=== PATIENT | male | born 1970 | race Caucasian/White ===

== ENCOUNTER 2020-08-13 07:05 | Day surgery (SDC) | payer OTHER ==
[2020-07-29 11:00] LABS: EOSINOPHILS # (AUTO) 0.1 X10'3 (0-0.9)
[2020-07-29 11:02] LABS: BASOPHILS % (AUTO) 0.7 % (0-1); EOSINOPHILS % (AUTO) 1.6 % (0-6); LYMPHOCYTES # (AUTO) 1.1 X10'3 (1.1-4.8); MEAN CORPUSCULAR HEMOGLOBIN 30.5 PG (27.0-31.0); MEAN CORPUSCULAR HGB CONC 34.1 g/dL (33.0-36.5); MEAN CORPUSCULAR VOLUME 89.4 FL (78-98); MEAN PLATELET VOLUME 6.5 FL (7.4-10.4); MONOCYTES # (AUTO) 0.4 X10'3 (0-0.9); MONOCYTES % (AUTO) 6.4 % (2-12); NEUTROPHILS # (AUTO) 5.3 X10'3 (1.8-7.7); NEUTROPHILS % (AUTO) 75.3 % (42-75); PRE OP HEMATOCRIT 46.2 % (42.0-52.0); PRE OP HEMOGLOBIN 15.7 g/dL (14.0-17.9); PRE OP PLATELET COUNT 310 X10'3 (140-440); RED BLOOD COUNT 5.16 X10'6 (4.70-6.10); RED CELL DISTRIBUTION WIDTH 13.4 % (11.5-14.5)
[2020-07-29 11:12] LABS: ALBUMIN 3.7 G/DL (3.4-5.0); ALBUMIN/GLOBULIN RATIO 0.9 (1.1-1.5); ALKALINE PHOSPHATASE 94 IU/L (46-116); BLOOD UREA NITROGEN 12 MG/DL (7-18); BUN/CREATININE RATIO 13.2 (5.4-32.0); CALCIUM 9.3 MG/DL (8.5-10.1); CHLORIDE 100 MMOL/L (99-107); CREATININE 0.91 MG/DL (0.60-1.10); PRE OP ALT 49 U/L (30-65); PRE OP ANION GAP 10 (8-16); PRE OP AST 32 U/L (10-37); PRE OP BILIRUB, TOTAL 0.6 MG/DL (0.0-1.0); PRE OP GLUCOSE 117 MG/DL (70-104); PRE OP POTASSIUM 4.3 MMOL/L (3.4-5.1); PRE OP SODIUM 138 MMOL/L (135-145); TOTAL CARBON DIOXIDE 27.8 MMOL/L (24-32); eGFR 88 ML/MIN
[~2020-08-13] VITALS: Ht 195.6 cm; Wt 131.5 kg
[2020-08-13] VITALS (9 sets, daily range): BP systolic 114–152; BP diastolic 55–92
[~2020-08-13 07:05] MED LIST: ICOS1CAP PO; LISI1TAB32 PO; ROSU40TA PO; ceFAZolin inj. 3,000 MG in normal saline 100ml IV soln 100 ML IV ONE; famotidine 20mg tablet PO ONE; ringers solution, lacted 1,000 ML IV SCH
[2020-08-13] MEDS ORDERED: LIDOcaine 1% 30ml preserv. free vial ONE (09:29)
[2020-08-13] MEDS ORDERED: BUPIVAcaine/PF 2.5 mg/ml (0.25%) 30ml vial ONE (09:29)
[2020-08-13] MEDS ORDERED: dexamethasone sod phosphate 10mg/ml inj ONE (09:35)
[2020-08-13] MEDS ORDERED: sevoflurane 250ml liquid IH ONE (09:35)
[2020-08-13] MEDS ORDERED: fentaNYL/PF 50MCG/1 ML 2ML syringe ONE (09:42)
[2020-08-13] MEDS ORDERED: midazolam 2 mg/2 ml injection ONE (09:43)
[2020-08-13] MEDS ORDERED: propofol inj 20 ML IV ONE (09:54)
[2020-08-13] MEDS ORDERED: rocuronium 10mg/ml inj IV ONE (09:54)
[2020-08-13] MEDS ORDERED: LIDOcaine 2% (20mg/ml) 5ml vial ONE (09:54)
[2020-08-13] MEDS ORDERED: glycopyrrolate 0.2mg/ml inj ONE (09:54)
[2020-08-13] MEDS ORDERED: ondansetron/PF 4mg/2ml inj ONE (09:55)
[2020-08-13] MEDS ORDERED: neostigmine methylsulfate 1 MG/ML 10ml vial ONE (09:58)
[2020-08-13] MEDS ORDERED: labetalol 20mg/4ml (5mg/ml) syringe IV ONE (10:15)
[2020-08-13] MEDS ORDERED: ondansetron/PF 4mg/2ml inj IV PRN (10:25)
[2020-08-13] MEDS ORDERED: hydrALAZINE 20mg/ml inj. IV PRN (10:25)
[2020-08-13] MEDS ORDERED: fentaNYL/PF 50MCG/1 ML 2ML syringe IV PRN ×2 (10:25)
[2020-08-13] MEDS ORDERED: ringers solution, lacted 1,000 ML IV SCH (10:25)
[2020-08-13] MEDS ORDERED: morphine 2 MG/ML inj. syringe IV PRN (10:25)
[2020-08-13] MEDS ORDERED: labetalol 20mg/4ml (5mg/ml) syringe IV PRN (10:25)
--- NOTE | 2020-08-13 11:02 | NUR ---
Received from OR via [facility] , accompanied by Anesthesiologist ELVA and report given by Anesthesiolgist. 10L MASK ON WITH 96% SATURATIONS, VSS. DENIES PAIN. 3 ABDOMINAL BANDAIDS THAT ARE CDI. 20G PIV IN RIGHT UE RUNNING LR AT 100. Addendum: 08/13/20 at 1112 by Noel Avila RN, RN Amended: Links added.
[2020-08-13] MEDS ORDERED: HYDROcodone/acetaminophen 10/325mg tab PO PRN (11:10)
[2020-08-13] MEDS: morphine 4 MG/ML inj SYRINge IV PRN ×2 (11:22→11:49)
--- NOTE | 2020-08-13 12:22 | NUR ---
PATIENT VERBALIZED UNDERSTANDING, OPPORTUNITY TO ASK QUESTIONS GIVEN AND PATIENT COMFORTABLE WITH DC. IV TAKEN OUT WITHOUT COMPLICATION. PATIENT HAS MET ALL DC CRITERIA FOR DC HOME. I HAVE REVIEWED D/C INSTRUCTIONS WITH PATIENT. TAKEN OUT VIA WHEELCHAIR WHERE PATIENT WAS TAKEN HOME WITH ALL BELONGINGS. FAMILY GAVE PATIENT TRANSPORT HOME. AMBULATED, VOIDED. DRESSED, SENT HOME WITH PRESCRIPTION. ORAL PAIN PILL ADMINISTERED. Addendum: 08/13/20 at 1224 by Noel Avila RN, RN Amended: Links added.
== END 2020-08-13 12:22 | disposition home or self-care (01) ==
LOC: PAS 07:05
PROVIDERS: ATTEND Surgery
DX: K40.90 Unilateral inguinal hernia, without obstruction or gangrene, not specified as recurrent (principal); G47.33 Obstructive sleep apnea (adult) (pediatric); I10 Essential (primary) hypertension; E66.9 Obesity, unspecified; Z68.34 Body mass index [BMI] 34.0-34.9, adult; E78.5 Hyperlipidemia, unspecified; Z79.899 Other long term (current) drug therapy; Z20.822 Contact with and (suspected) exposure to COVID-19; Z87.891 Personal history of nicotine dependence; Z72.89 Other problems related to lifestyle; Z82.49 Family history of ischemic heart disease and other diseases of the circulatory system; Z80.8 Family history of malignant neoplasm of other organs or systems
CPT/HCPCS: 36415; 49650; 80053; 82948; 85025; 87635; 93005; J0690; J2001; J2250; J2270; J2405; J2704; J2710; J3010; J3490; S2900; A4215; A4618; C1781; J1100; J7120